=== PATIENT | female | born 1965 | race Caucasian/White ===

== ENCOUNTER → 2017-02-19 | Outpatient (CLI) | payer BC ==
[2017-02-19 13:59] LABS: Anion Gap 9 mmol/L; Blood Urea Nitrogen 14 mg/dL (7-17); Calcium 9.4 mg/dL (8.4-10.2); Carbon Dioxide 28 mmol/L (22-30); Chloride 104 mmol/L (98-107); Glucose 89 mg/dL (74-99); Non-African American GFR(MDRD) >60 (>60 ml/min/1.73 sqM); Potassium 4.4 mmol/L (3.5-5.1); Sodium 141 mmol/L (137-145)
== END | disposition home or self-care (01) ==
LOC: LABWHC1 12:15
PROVIDERS: ATTEND Family Medicine
DX: I10 Essential (primary) hypertension (principal)
CPT/HCPCS: 36415; 80048

== ENCOUNTER → 2017-05-06 | Outpatient (CLI) | payer BC ==
[2017-05-06 16:56] LABS: ALT 31 U/L (9-52); AST 20 U/L (14-36)
== END | disposition home or self-care (01) ==
LOC: LABWHC1 16:04
PROVIDERS: ATTEND Dermatology
DX: B35.1 Tinea unguium (principal)
CPT/HCPCS: 36415; 84450; 84460

== ENCOUNTER 2019-08-23 07:44 | Emergency (ER) | payer BC ==
[2019-08-23 07:49] VITALS: TEMP 98
[2019-08-23] MEDS ORDERED: ASPIRIN 81 MG PO STA (07:58)
--- NOTE | 2019-08-23 08:04 | ED ---
Chest Pain HPI - General Chief Complaint: Chest Pain Stated Complaint: chest pain Time Seen by Provider: 08/23/19 07:51 Source: patient, RN notes reviewed Mode of arrival: wheelchair Limitations: no limitations - History of Present Illness Initial Comments: This a 54-year-old female presents emergency Department chief complaint of chest pain and shortness of breath. Patient states symptoms started yesterday morning. Patient states she felt like she was kicked in her back. Patient states that she felt like she just slept wrong. Patient states she woke up this morning and saw the symptoms in which she had some pain rating down her right arm, right side region. She states it hurts to take a deep inspiration. She states this makes her feel short of breath. 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 Patient states this is an 2013. Patient denies history of cardiac disease, lung disease. Patient has no history of diabetes, hyperlipidemia. Patient has no recent fever, chills, cough congestion. - Related Data Home Medications Medication Instructions Recorded Confirmed HYDROcodone/APAP 7.5-325MG [[place] 1 tab PO TID PRN 09/09/15 08/23/19 7.5-325] ALPRAZolam [Xanax] 0.25 mg PO Q6H PRN 08/23/19 08/23/19 Cholecalciferol (Vitamin D3) 2,000 unit PO DAILY 08/23/19 08/23/19 [Vitamin D3] Lisinopril-Hctz 10-12.5 mg 1 tab PO DAILY 08/23/19 08/23/19 [Zestoretic 10-12.5] Magnesium Chloride [Slow Mag] 64 mg PO DAILY 08/23/19 08/23/19 Melatonin 5 mg PO HS PRN 08/23/19 08/23/19 Mv-Min/Vit C/Glut/Lysine/Hc124 1 tab PO DAILY PRN 08/23/19 08/23/19 [Airborne Tablet Chewable] Phentermine HCl [Adipex-P] 37.5 mg PO DAILY 08/23/19 08/23/19 Sertraline [Zoloft] 100 mg PO DAILY 08/23/19 08/23/19 Previous Rx's Medication Instructions Recorded Ibuprofen [Motrin] 600 mg PO Q8HR PRN #30 tab 08/23/19 Allergies Allergy/AdvReac Type Severity Reaction Status Date / Time erythromycin base Allergy Nausea & Verified 08/23/19 08:38 Vomiting Review of Systems ROS Statement: Those systems with pertinent positive or pertinent negative responses have been documented in the HPI. ROS Other: All systems not noted in ROS Statement are negative. EKG Findings - EKG Comments: EKG Findings:: EKG 8:02 sinus tachycardia with rate of 105 DE 128 QRS 84 QT /QTC 336/444 - EKG Results: EKG: interpreted by [facility]ALO Past Medical History Past Medical History: Cancer Additional Past Medical History / Comment(s): SQAUMOUS CELL /TONGUE History of Any Multi-Drug Resistant Organisms: None Reported Past Surgical History: Cholecystectomy, Hysterectomy Additional Past Surgical History / Comment(s): LEFT OOPERECTOMY. TONGUE TUMOR RESECTED WITH FREE FLAP GRAFT/ARTERY WITH NECK LYMPH NODE DISSECTION/RADIATION. Past Anesthesia/Blood Transfusion Reactions: Motion Sickness Past Psychological History: Depression Smoking Status: Former smoker Past Alcohol Use History: None Reported Past Drug Use History: None Reported General Exam Limitations: no limitations General appearance: alert, in no apparent distress Head exam: Present: atraumatic, normocephalic, normal inspection Eye exam: Present: normal appearance, PERRL, EOMI. Absent: scleral icterus, conjunctival injection, periorbital swelling ENT exam: Present: normal exam, normal oropharynx, mucous membranes moist, TM's normal bilaterally, normal external ear exam Neck exam: Present: full ROM. Absent: normal inspection (Old scarring and deformity noted in the lisinopril neck), tenderness, meningismus, lymphadenopathy Respiratory exam: Present: normal lung sounds bilaterally, chest wall tenderness. Absent: respiratory distress, wheezes, rales, rhonchi, stridor Cardiovascular Exam: Present: normal rhythm, tachycardia, normal heart sounds. Absent: systolic murmur, diastolic murmur, rubs, gallop, clicks GI/Abdominal exam: Present: soft, normal bowel sounds. Absent: distended, tenderness, guarding, rebound, rigid Back exam: Absent: CVA tenderness (R), CVA tenderness (L) Neurological exam: Present: alert, oriented X3 Skin exam: Present: warm, dry, intact, normal color. Absent: rash Course Vital Signs 08/23/19 08/23/19 08/23/19 07:47 08:05 08:06 Temperature 98.0 F Pulse Rate 117 H 96 Pulse Rate [ 92 Interactive Designer ] Respiratory 18 96 H Rate Blood Pressure 144/89 O2 Sat by Pulse 98 95 Oximetry 08/23/19 08/23/19 08/23/19 08:11 09:00 10:00 Temperature Pulse Rate 95 101 H 91 Pulse Rate [ Interactive Designer ] Respiratory 16 16 20 Rate Blood Pressure 135/92 131/95 157/96 O2 Sat by Pulse 98 96 95 Oximetry 08/23/19 11:00 Temperature Pulse Rate 95 Pulse Rate [ Interactive Designer ] Respiratory 21 Rate Blood Pressure 139/99 O2 Sat by Pulse 95 Oximetry Chest Pain MDM - MDM Patient has reproducible chest pain with a negative workup including negative troponin 2, remaining laboratory unremarkable chest x-ray unremarkable. Do feel this is related to chest wall pain as it is reproducible worse with movement. Patient has a negative d-dimer. We discussed admission patient declines. Patient will be discharged with close follow-up return parameters were discussed. Disposition Clinical Impression: Atypical chest pain, Chest wall pain Disposition: HOME SELF-CARE Condition: Stable Instructions (If sedation given, give patient instructions): Costochondritis (ED), Chest Pain (ED) Additional Instructions: Please return to the Emergency Department if symptoms worsen or any other concerns. Prescriptions: Ibuprofen [Motrin] 600 mg PO Q8HR PRN #30 tab PRN Reason: Pain Is patient prescribed a controlled substance at d/c from ED?: No Referrals: Phong Gonzalez MD [Primary Care Provider] - 1-2 days Time of Disposition: 11:43
[2019-08-23 08:19] LABS: Basophils # (A) 0.1 k/uL (0-0.2); Basophils % (A) 1 %; Eosinophils # (A) 0.2 k/uL (0-0.7); Eosinophils % (A) 2 %; HCT 44.9 % (34.0-46.0); HGB 15.1 gm/dL (11.4-16.0); Lymphocytes # (A) 1.3 k/uL (1.0-4.8); Lymphocytes % (A) 17 %; MCH 29.3 pg (25.0-35.0); MCHC 33.7 g/dL (31.0-37.0); MCV 86.8 fL (80.0-100.0); Mean Platelet Volume 6.7; Monocytes # (A) 0.5 k/uL (0-1.0); Monocytes % (A) 6 %; Neutrophils # (A) 5.7 k/uL (1.3-7.7); Neutrophils % (A) 73 %; Platelet Count 335 k/uL (150-450); RBC 5.17 m/uL (3.80-5.40); RDW 12.5 % (11.5-15.5); WBC 7.7 k/uL (3.8-10.6)
--- NOTE | 2019-08-23 08:28 | XR ---
EXAMINATION TYPE: XR chest 2V DATE OF EXAM: 08/23/2019 COMPARISON: NONE HISTORY: Chest pain today. History of throat/neck cancer. TECHNIQUE: Frontal and lateral views of the chest are obtained. FINDINGS: Overlying EKG leads. There is no focal air space opacity, pleural effusion, or pneumothora x seen. The cardiac silhouette size is within normal limits. The osseous structures are intact. Le ft axillary surgical clips. IMPRESSION: No acute cardiopulmonary process.
[2019-08-23 08:31] LABS: Albumin 4.8 g/dL (3.5-5.0); Calcium 9.9 mg/dL (8.4-10.2); Magnesium 1.8 mg/dL (1.6-2.3); Potassium 4.2 mmol/L (3.5-5.1); Total Bilirubin 0.7 mg/dL (0.2-1.3)
[2019-08-23 08:42] LABS: D-Dimer 0.2 mg/L FEU (<0.60); INR 0.9 (<1.2); Partial Thromboplastin Time 26.2 sec (22.0-30.0); Prothrombin Time 10.1 sec (9.0-12.0)
[2019-08-23 11:14] VITALS: BP 139/99; PULSE 95; RESP 21
== END 2019-08-23 11:51 | disposition home or self-care (01) ==
LOC: EC 07:44
DX: R07.89 Other chest pain (principal); R06.02 Shortness of breath; F32.9 Major depressive disorder, single episode, unspecified; Z79.899 Other long term (current) drug therapy; Z88.1 Allergy status to other antibiotic agents; Z87.891 Personal history of nicotine dependence
CPT/HCPCS: 36415; 71046; 80053; 83690; 83735; 83880; 84484; 85025; 85379; 85610; 85730; 93005; 99285

== ENCOUNTER 2023-03-08 14:17 | Emergency (ER) | payer BC ==
[2023-03-08 14:41] VITALS: RESP 20
--- NOTE | 2023-03-08 15:46 | CT ---
EXAMINATION TYPE: CT brain kiki higuera DATE OF EXAM: 03/08/2023 COMPARISON: None HISTORY: headache and neck pain following fall CT DLP: [address] of the brain was performed. The ventricles, basal cisterns and sulci overlying the cerebral convexities demonstrate mild enlargem ent. There is no evidence for intracranial hemorrhage or sulcal effacement. There is decreased attenuatio n about the periventricular white matter and deep white matter of both cerebral hemispheres, compatib le with chronic small vessel ischemia. No mass effects are seen. If symptoms persist consider MRI. Osseous calvarium is intact. IMPRESSION: 1. Age related atrophic and chronic small vessel ischemic change without acute intracranial process seen at this time. CT Cervical Spine: Unenhanced CT of the cervical spine was performed with bone and soft tissue window settings submitted . Coronal and sagittal reconstruction is obtained. There is normal alignment and prevertebral soft tissues. No evidence for acute cervical fracture. Sca ttered degenerative disc disease and spondylosis. Biapical scarring. Postoperative neck dissection changes seen. IMPRESSION: 1. No evidence for acute fracture or subluxation of the cervical spine.
[2023-03-08] MEDS ORDERED: CYCLOBENZAPRINE 5 MG TAB PO STA (15:47)
[2023-03-08] MEDS ORDERED: LIDOCAINE 5% PATCH TOPICAL STA (15:48)
[2023-03-08] MEDS: ACETAMINOPHEN TAB 500 MG TAB PO STA ×2 (15:52→16:00)
--- NOTE | 2023-03-08 16:36 | ED ---
Fall HPI - General Chief Complaint: Fall Stated Complaint: fall - head injury Time Seen by Provider: 03/08/23 15:01 Source: patient Mode of arrival: ambulatory - History of Present Illness Initial Comments: Patient is a 57-year-old female who presents to the emergency department for headache. Patient fell yesterday hitting her head on brick. She did not lose consciousness. She is not on blood thinners. Patient has significant headache in the back of her head and neck. She denies blurry vision, double vision, nausea, vomiting. Patient does feel lightheaded. - Related Data Home Medications Medication Instructions Recorded Confirmed HYDROcodone/APAP 7.5-325MG [[place] 1 tab PO TID PRN 09/09/15 08/23/19 7.5-325] ALPRAZolam [Xanax] 0.25 mg PO Q6H PRN 08/23/19 08/23/19 Cholecalciferol (Vitamin D3) 2,000 unit PO DAILY 08/23/19 08/23/19 [Vitamin D3] Lisinopril-Hctz 10-12.5 mg 1 tab PO DAILY 08/23/19 08/23/19 [Zestoretic 10-12.5] Magnesium Chloride [Slow Mag] 64 mg PO DAILY 08/23/19 08/23/19 Melatonin 5 mg PO HS PRN 08/23/19 08/23/19 Mv-Min/Vit C/Glut/Lysine/Hc124 1 tab PO DAILY PRN 08/23/19 08/23/19 [Airborne Tablet Chewable] Phentermine HCl [Adipex-P] 37.5 mg PO DAILY 08/23/19 08/23/19 Sertraline [Zoloft] 100 mg PO DAILY 08/23/19 08/23/19 Previous Rx's Medication Instructions Recorded Ibuprofen [Motrin] 600 mg PO Q8HR PRN #30 tab 08/23/19 Acetaminophen Tab [Tylenol Tab] 1,000 mg PO Q6H PRN #30 tablet 03/08/23 Cyclobenzaprine [Flexeril] 5 mg PO TID PRN #15 tablet 03/08/23 Lidocaine 5% Patch [Lidoderm 5% 1 patch TOPICAL DAILY PRN #7 patch 03/08/23 Patch] Allergies Allergy/AdvReac Type Severity Reaction Status Date / Time erythromycin base Allergy Nausea & Verified 03/08/23 14:41 Vomiting Review of Systems ROS Statement: Those systems with pertinent positive or pertinent negative responses have been documented in the HPI. ROS Other: All systems not noted in ROS Statement are negative. Past Medical History Past Medical History: Cancer Additional Past Medical History / Comment(s): SQAUMOUS CELL /TONGUE History of Any Multi-Drug Resistant Organisms: None Reported Past Surgical History: Cholecystectomy, Hysterectomy Additional Past Surgical History / Comment(s): LEFT OOPERECTOMY. TONGUE TUMOR RESECTED WITH FREE FLAP GRAFT/ARTERY WITH NECK LYMPH NODE DISSECTION/RADIATION. Past Anesthesia/Blood Transfusion Reactions: Motion Sickness Past Psychological History: Depression Smoking Status: Never smoker Past Alcohol Use History: None Reported Past Drug Use History: None Reported General Exam Limitations: no limitations General appearance: alert, in no apparent distress Head exam: Present: atraumatic, normocephalic, normal inspection Eye exam: Present: normal appearance, PERRL, EOMI. Absent: scleral icterus, conjunctival injection, periorbital swelling ENT exam: Present: TM's normal bilaterally Neck exam: Present: normal inspection, tenderness (midline ), full ROM. Absent: meningismus, lymphadenopathy Respiratory exam: Present: normal lung sounds bilaterally. Absent: respiratory distress, wheezes, rales, rhonchi, stridor Cardiovascular Exam: Present: regular rate, normal rhythm, normal heart sounds. Absent: systolic murmur, diastolic murmur, rubs, gallop, clicks Neurological exam: Present: alert, oriented X3, CN II-XII intact Expanded Cerebellar function: Finger to Nose: Normal, Heel to Tai: Normal Sensory exam: Upper Extremity Light Touch: Normal, Lower Extremity Light Touch: Normal Motor strength exam: RUE: 5, LUE: 5, RLE: 5, LLE: 5 Psychiatric exam: Present: normal affect, normal mood Skin exam: Present: warm, dry, intact, normal color. Absent: rash Course Vital Signs 03/08/23 03/08/23 14:38 17:19 Temperature 98.5 F 98.1 F Pulse Rate 98 82 Respiratory 20 20 Rate Blood Pressure 145/91 136/86 O2 Sat by Pulse 99 99 Oximetry Medical Decision Making - Medical Decision Making Was pt. sent in by a medical professional or institution (, PA, WEB CONTENT EDITOR, urgent care, hospital, or senior care...) When possible be specific @ -No Did you speak to anyone other than the patient for history (EMS, parent, family, police, friend...)? What history was obtained from this source @ -No Did you review nursing and triage notes (agree or disagree)? Why? @ -I reviewed and agree with nursing and triage notes Were old charts reviewed (outside hosp., previous admission, EMS record, old EKG, old radiological studies, urgent care reports/EKG's, senior care records)? Report findings @ -No old charts were reviewed Differential Diagnosis (chest pain, altered mental status, abdominal pain women, abdominal pain men, vaginal bleeding, weakness, fever, dyspnea, syncope, headache, dizziness, GI bleed, back pain, seizure, CVA, palpatations, mental health)? @ -Differential Headache: Migraine, tension, cluster, carbon monoxide, central venous thrombosis, pension karma temporal arteritis, acute closure glaucoma, intercranial hemorrhage, mastoiditis, sinusitis, head injury, this is not meant to be an all-inclusive list. EKG interpreted by me (3pts min.). @ -As above X-rays interpreted by me (1pt min.). @ -None done CT interpreted by me (1pt min.). @ -Negative for acute intracranial process and cervical spine fracture U/S interpreted by me (1pt. min.). @ -None done What testing was considered but not performed or refused? (CT, X-rays, U/S, labs)? Why? @ -None What meds were considered but not given or refused? Why? @ -None Did you discuss the management of the patient with other professionals (professionals i.e. , PA, WEB CONTENT EDITOR, lab, RT, psych nurse, director of social services, icing coater, teacher, fire officer, ed case manager)? Give summary @ -No Was smoking cessation discussed for >3mins.? @ -No Was critical care preformed (if so, how long)? @ -No Were there social determinants of health that impacted care today? How? (Homelessness, low income, unemployed, alcoholism, drug addiction, transportation, low edu. Level, literacy, decrease access to med. care, [facility], rehab)? @ -No Was there de-escalation of care discussed even if they declined (Discuss DNR or withdrawal of care, Hospice)? DNR status @ -No What co-morbidities impacted this encounter? (DM, HTN, Smoking, COPD, CAD, Cancer, CVA, ARF, Chemo, Hep., AIDS, mental health diagnosis, sleep apnea, morbid obesity)? @ -None Was patient admitted / discharged? Hospital course, mention meds given and route, prescriptions, significant lab abnormalities, going to OR and other pertinent info. @ -Patient presenting for closed head injury. No loss of consciousness, no blood thinner use, no vomiting, no hematoma. Patient has significant headache and midline neck pain. She is concerned that she may have a brain bleed. Given severity of headache CT of the brain and C-spine was obtained and interpreted by myself/radiology showing no acute intracranial process and no evidence of cervical spine fracture. Pain treated in the emergency department with improvement. Patient stable medical condition for discharge with discuss concu ssion in detail. Undiagnosed new problem with uncertain prognosis? @ -No Drug Therapy requiring intensive monitoring for toxicity (Heparin, Nitro, Insulin, Cardizem)? @ -No Were any procedures done? @ -No Diagnosis/symptom? @ -fall,closed head injury, headache, neck pain Acute, or Chronic, or Acute on Chronic? @ -acute Uncomplicated (without systemic symptoms) or Complicated (systemic symptoms)? @ -uncomplicated Side effects of treatment? @ -No Exacerbation, Progression, or Severe Exacerbation? @ -No Poses a threat to life or bodily function? How? (Chest pain, [place], [place], pneumonia, PE, COPD, DKA, ARF, appy, cholecystitis, CVA, Diverticulitis, Homicidal, Suicidal, threat to staff... and all critical care pts) @ -No Dr. Watters is my attending Disposition Clinical Impression: Fall, Closed head injury, Headache, Neck pain Disposition: HOME SELF-CARE Condition: Good Instructions (If sedation given, give patient instructions): Concussion (ED), Fall Prevention for Older Adults (ED) Additional Instructions: Take medication as directed. Avoid anti-inflammatory medications such as Motrin and to 48 hours post-head injury. Please follow-up with your primary care provider in 1-2 days. Return to the emergency department if you experience new, concerning, or worsening symptoms. Prescriptions: Cyclobenzaprine [Flexeril] 5 mg PO TID PRN #15 tablet PRN Reason: Muscle Spasm Lidocaine 5% Patch [Lidoderm 5% Patch] 1 patch TOPICAL DAILY PRN #7 patch PRN Reason: Pain Acetaminophen Tab [Tylenol Tab] 1,000 mg PO Q6H PRN #30 tablet PRN Reason: Pain Is patient prescribed a controlled substance at d/c from ED?: No Referrals: Phong Gonzalez MD [Primary Care Provider] - 1-2 days
[2023-03-08 17:21] VITALS: BP 136/86; PULSE 82; TEMP 98.1
== END 2023-03-08 17:28 | disposition home or self-care (01) ==
LOC: EC 14:17
DX: S09.90XA Unspecified injury of head, initial encounter (principal); M54.2 Cervicalgia; Z88.8 Allergy status to other drugs, medicaments and biological substances; Z86.59 Personal history of other mental and behavioral disorders; W18.09XA Striking against other object with subsequent fall, initial encounter
CPT/HCPCS: 70450; 72125; 99284

== ENCOUNTER 2024-05-27 08:17 | Emergency (ER) | payer BC ==
[2024-05-27 08:22] VITALS: TEMP 98
--- NOTE | 2024-05-27 08:42 | ED ---
GI Bleed HPI - General Chief complaint: GI Bleed Stated complaint: GI Bleed Time Seen by Provider: 05/27/24 08:38 Source: patient, RN notes reviewed Mode of arrival: ambulatory Limitations: no limitations - History of Present Illness Initial comments: 59-year-old female presented to the ER with a chief complaint of bright red blood per rectum. Patient reports for the past 5 days she has been having an increase in back pain. Patient was seen by urgent care yesterday and had x-rays completed. Patient was found to have constipation and impaction. Patient was discharged with Fleet enemas to complete at home. Patient also discharged with steroids and muscle relaxers for back pain, has not started medications at this time. Patient does report a history of constipation and typically takes Colace with relief. She states she completed the 2 Fleet enemas at home and this morning while using the restroom she noticed bright red blood in the toilet bowl and when wiping. No blood thinner use, history of hemorrhoids or anal fissures. Patient is reporting a mild generalized abdominal pain and rectal pain. Any fevers, chills, nausea, vomiting. Denies any other complaints at this time. - Related Data Home Medications Medication Instructions Recorded Confirmed ALPRAZolam [Xanax] 0.25 mg PO Q6H PRN 08/23/19 05/27/24 Lisinopril-Hctz 10-12.5 mg 1 tab PO DAILY 08/23/19 05/27/24 [Zestoretic 10-12.5] Phentermine HCl [Adipex-P] 37.5 mg PO DAILY 08/23/19 05/27/24 Sertraline [Zoloft] 50 mg PO DAILY 08/23/19 05/27/24 Gabapentin [Neurontin] 100 mg PO TID 05/27/24 05/27/24 Ibuprofen/Acetaminophen [Advil 1 tab PO DAILY PRN 05/27/24 05/27/24 Dual Action 125MG(IBU)-250MG(ACET)] Previous Rx's Medication Instructions Recorded Amoxic-Pot Clav 875-125Mg 1 tab PO Q12HR #14 tab 05/27/24 [Augmentin 875-125] Allergies Allergy/AdvReac Type Severity Reaction Status Date / Time erythromycin base AdvReac Nausea & Verified 08/31/24 10:21 Vomiting Review of Systems ROS Statement: Those systems with pertinent positive or pertinent negative responses have been documented in the HPI. ROS Other: All systems not noted in ROS Statement are negative. Past Medical History Past Medical History: Cancer Additional Past Medical History / Comment(s): SQAUMOUS CELL /TONGUE History of Any Multi-Drug Resistant Organisms: None Reported Past Surgical History: Cholecystectomy, Hysterectomy Additional Past Surgical History / Comment(s): LEFT OOPERECTOMY. TONGUE TUMOR RESECTED WITH FREE FLAP GRAFT/ARTERY WITH NECK LYMPH NODE DISSECTION/RADIATION. Past Anesthesia/Blood Transfusion Reactions: Motion Sickness Past Psychological History: Depression Smoking Status: Never smoker Past Alcohol Use History: None Reported Past Drug Use History: None Reported General Exam Limitations: no limitations General appearance: alert, in no apparent distress Respiratory exam: Present: normal lung sounds bilaterally. Absent: respiratory distress, wheezes, rales, rhonchi, stridor Cardiovascular Exam: Present: regular rate, normal rhythm, normal heart sounds. Absent: systolic murmur, diastolic murmur, rubs, gallop, clicks GI/Abdominal exam: Present: soft, tenderness (Generalized), normal bowel sounds Rectal exam: Present: normal inspection, normal rectal tone, heme (+) stool (blood tinged), other Extremities exam: Present: normal inspection, full ROM, normal capillary refill. Absent: tenderness, pedal edema, joint swelling, calf tenderness Neurological exam: Present: alert, oriented X3, CN II-XII intact Skin exam: Present: warm, dry, intact, normal color. Absent: rash Course Vital Signs 05/27/24 05/27/24 05/27/24 08:18 11:00 13:15 Temperature 98 F Pulse Rate 102 H 93 93 Respiratory 18 16 16 Rate Blood Pressure 127/84 122/79 113/72 O2 Sat by Pulse 99 Oximetry 05/27/24 14:13 Temperature Pulse Rate 91 Respiratory 16 Rate Blood Pressure 132/79 O2 Sat by Pulse 98 Oximetry - Reevaluation(s) Reevaluation #1: 05/27/24 08:43 Rectal exam completed and chaperoned by Tiana URBANO. Medical Decision Making - Medical Decision Making Was pt. sent in by a medical professional or institution (, PA, SHUTTLE PREPARATION SUPERVISOR, urgent care, hospital, or skilled nursing...) When possible be specific @ -No Did you speak to anyone other than the patient for history (EMS, parent, family, police, friend...)? What history was obtained from this source @ -No Did you review nursing and triage notes (agree or disagree)? Why? @ -I reviewed and agree with nursing and triage notes Were old charts reviewed (outside hosp., previous admission, EMS record, old EKG, old radiological studies, urgent care reports/EKG's, skilled nursing records)? Report findings @ -No old charts were reviewed Differential Diagnosis (chest pain, altered mental status, abdominal pain women, abdominal pain men, vaginal bleeding, weakness, fever, dyspnea, syncope, headache, dizziness, GI bleed, back pain, seizure, CVA, palpatations, mental health, musculoskeletal)? @ -Differential GI Bleed:Esophageal varices, aortoenteric fistula, Angie- Holland, gastritis, peptic ulcer disease, diverticulosis, inflammatory bowel disea se, hemorrhoids, fissure, colitis, malignancy, Meckel's diverticulum, this is not meant to be an all-inclusive list. EKG interpreted by me (3pts min.). @ -None X-rays interpreted by me (1pt min.). @ -KUB interpreted by me showing a moderate stool burden in colon. Nonspecific gas bowel pattern. CT interpreted by me (1pt min.). @ -CT abdomen pelvis showing mild wall thickening in distal sigmoid colon correlate with colitis. Moderate fecal retention. U/S interpreted by me (1pt. min.). @ -None done What testing was considered but not performed or refused? (CT, X-rays, U/S, labs)? Why? @ -None What meds were considered but not given or refused? Why? @ -None Did you discuss the management of the patient with other professionals (professionals i.e. , PA, SHUTTLE PREPARATION SUPERVISOR, lab, RT, psych nurse, social services designee, drafter refrigeration, teacher, lodge officer, shoe parts caser)? Give summary @ -No Was smoking cessation discussed for >3mins.? @ -No Was critical care preformed (if so, how long)? @ -No Were there social determinants of health that impacted care today? How? (Homelessness, low income, unemployed, alcoholism, drug addiction, transportation, low edu. Level, literacy, decrease access to med. care, [facility], rehab)? @ -No Was there de-escalation of care discussed even if they declined (Discuss DNR or withdrawal of care, Hospice)? DNR status @ -No What co-morbidities impacted this encounter? (DM, HTN, Smoking, COPD, CAD, Cancer, CVA, ARF, Chemo, Hep., AIDS, mental health diagnosis, sleep apnea, morbid obesity)? @ -None Was patient admitted / discharged? Hospital course, mention meds given and route , prescriptions, significant lab abnormalities, going to OR and other pertinent info. @ -Discharge. 59-year-old female presented to the ER with a chief complaint of rectal bleeding. History and physical exam completed. Vitals stable. Patient in no signs of acute distress and nontoxic-appearing. Mild abdominal tenderness to left side. No rebound or guarding. Normal bowel sounds. Rectal exam performed showing normal rectal tone with no hemorrhoids or anal fissures present. There was a blood-tinged stool liquid obtained on exam. Exam chaperoned by Tiana URBANO. Laboratory studies obtained showing a stable hemoglobin at 14.6. Coagulation studies normal. Chemistry panel within normal limits. KUB initially performed showing moderate fecal retention consistent with constipation. No suspicious air-fluid levels. Enema performed, pt passed small amount of stool. CTA abdomen pelvis performed at that time showing evidence of colitis. Patient will be started on Augmentin. Upon reevaluation, patient resting comfortably in exam room no signs of acute distress. Results discussed with patient, all questions answered. I advised close follow-up with PCP. Strict return parameters discussed. Patient discharged in stable condition. Patient verbally expressed understanding agree with care plan. Case discussed with ED attending, Dr. Chaparro. Undiagnosed new problem with uncertain prognosis? @ -No Drug Therapy requiring intensive monitoring for toxicity (Heparin, Nitro, Insulin, Cardizem)? @ -No Were any procedures done? @ -No Diagnosis/symptom? @ -Colitis/constipation Acute, or Chronic, or Acute on Chronic? @ -Acute Uncomplicated (without systemic symptoms) or Complicated (systemic symptoms)? @ -Uncomplicated Side effects of treatment? @ -No Exacerbation, Progression, or Severe Exacerbation? @ -No Poses a threat to life or bodily function? How? (Chest pain, [place], [place], pneumonia, PE, COPD, DKA, ARF, appy, cholecystitis, CVA, Diverticulitis, Homicidal, Suicidal, threat to staff... and all critical care pts) @ -No - Lab Data Result diagrams: 05/27/24 08:51 05/27/24 08:51 Lab Results 05/27/24 05/27/24 05/27/24 Range/Units 08:51 08:51 08:51 WBC 10.6 (3.8-10.6) k/uL RBC 5.07 (3.80-5.40) m/uL Hgb 14.6 (11.4-16.0) gm/dL Hct 44.1 (34.0-46.0) % MCV 86.9 (80.0-100.0) fL MCH 28.8 (25.0-35.0) pg MCHC 33.2 (31.0-37.0) g/dL RDW 12.7 (11.5-15.5) % Plt Count 277 (150-450) k/uL MPV 7.4 Neutrophils % 77 % Lymphocytes % 15 % Monocytes % 5 % Eosinophils % 2 % Basophils % 0 % Neutrophils # 8.1 H (1.3-7.7) k/uL Lymphocytes # 1.5 (1.0-4.8) k/uL Monocytes # 0.5 (0-1.0) k/uL Eosinophils # 0.2 (0-0.7) k/uL Basophils # 0.1 (0-0.2) k/uL PT 10.4 (10.0-12.5) sec INR 0.9 (<1.2) APTT 24.6 (22.0-30.0) sec Sodium 138 (137-145) mmol/L Potassium 3.8 (3.5-5.1) mmol/L Chloride 105 (98-107) mmol/L Carbon Dioxide 25 (22-30) mmol/L Anion Gap 8 mmol/L BUN 22 H (7-17) mg/dL Creatinine 0.85 (0.52-1.04) mg/dL Est GFR (CKD-EPI)AfAm 86 (>60 ml/min/1.73 sqM) Est GFR (CKD-EPI)NonAf 75 (>60 ml/min/1.73 sqM) Glucose 97 (74-99) mg/dL Plasma Lactic Acid Dennys (0.7-2.0) mmol/L Calcium 9.5 (8.4-10.2) mg/dL Total Bilirubin 0.9 (0.2-1.3) mg/dL AST 22 (14-36) U/L ALT 17 (4-34) U/L Alkaline Phosphatase 66 (38-126) U/L Total Protein 7.0 (6.3-8.2) g/dL Albumin 4.2 (3.5-5.0) g/dL 05/27/24 Range/Units 08:51 WBC (3.8-10.6) k/uL RBC (3.80-5.40) m/uL Hgb (11.4-16.0) gm/dL Hct (34.0-46.0) % MCV (80.0-100.0) fL MCH (25.0-35.0) pg MCHC (31.0-37.0) g/dL RDW (11.5-15.5) % Plt Count (150-450) k/uL MPV Neutrophils % % Lymphocytes % % Monocytes % % Eosinophils % % Basophils % % Neutrophils # (1.3-7.7) k/uL Lymphocytes # (1.0-4.8) k/uL Monocytes # (0-1.0) k/uL Eosinophils # (0-0.7) k/uL Basophils # (0-0.2) k/uL PT (10.0-12.5) sec INR (<1.2) APTT (22.0-30.0) sec Sodium (137-145) mmol/L Potassium (3.5-5.1) mmol/L Chloride (98-107) mmol/L Carbon Dioxide (22-30) mmol/L Anion Gap mmol/L BUN (7-17) mg/dL Creatinine (0.52-1.04) mg/dL Est GFR (CKD-EPI)AfAm (>60 ml/min/1.73 sqM) Est GFR (CKD-EPI)NonAf (>60 ml/min/1.73 sqM) Glucose (74-99) mg/dL Plasma Lactic Acid Dennys 1.1 (0.7-2.0) mmol/L Calcium (8.4-10.2) mg/dL Total Bilirubin (0.2-1.3) mg/dL AST (14-36) U/L ALT (4-34) U/L Alkaline Phosphatase (38-126) U/L Total Protein (6.3-8.2) g/dL Albumin (3.5-5.0) g/dL - Radiology Data Radiology results: report reviewed, image reviewed Disposition Clinical Impression: Colitis, Constipation Disposition: HOME SELF-CARE Condition: Stable Instructions (If sedation given, give patient instructions): Constipation (ED), Colitis (ED) Additional Instructions: Please complete full course of antibiotics. Follow-up with PCP. Return to the ER for new or worsening concerns including but not limited to black tarry stool, increase in bright red blood in toilet or increase in pain. Prescriptions: Amoxic-Pot Clav 875-125Mg [Augmentin 875-125] 1 tab PO Q12HR #14 tab Is patient prescribed a controlled substance at d/c from ED?: No Referrals: Phong Gonzalez MD [Primary Care Provider] - 1-2 days Trayn Bedolla MD [STAFF PHYSICIAN] - 1-2 days Time of Disposition: 13:55
[2024-05-27 09:01] LABS: Basophils # (A) 0.1 k/uL (0-0.2); Basophils % (A) 0 %; Eosinophils # (A) 0.2 k/uL (0-0.7); Eosinophils % (A) 2 %; HCT 44.1 % (34.0-46.0); HGB 14.6 gm/dL (11.4-16.0); Lymphocytes # (A) 1.5 k/uL (1.0-4.8); Lymphocytes % (A) 15 %; MCH 28.8 pg (25.0-35.0); MCHC 33.2 g/dL (31.0-37.0); MCV 86.9 fL (80.0-100.0); Mean Platelet Volume 7.4; Monocytes # (A) 0.5 k/uL (0-1.0); Monocytes % (A) 5 %; Neutrophils # (A) 8.1 k/uL (1.3-7.7); Neutrophils % (A) 77 %; Platelet Count 277 k/uL (150-450); RBC 5.07 m/uL (3.80-5.40); RDW 12.7 % (11.5-15.5); WBC 10.6 k/uL (3.8-10.6)
[2024-05-27 09:10] LABS: INR 0.9 (<1.2); Partial Thromboplastin Time 24.6 sec (22.0-30.0); Prothrombin Time 10.4 sec (10.0-12.5)
[2024-05-27 09:12] LABS: ALT 17 U/L (4-34); AST 22 U/L (14-36); African American GFR (CKD) 86 (>60 ml/min/1.73 sqM); Albumin 4.2 g/dL (3.5-5.0); Alkaline Phosphatase 66 U/L (38-126); Anion Gap 8 mmol/L; Blood Urea Nitrogen 22 mg/dL (7-17); Calcium 9.5 mg/dL (8.4-10.2); Carbon Dioxide 25 mmol/L (22-30); Chloride 105 mmol/L (98-107); Glucose 97 mg/dL (74-99); Non-African American GFR(CKD) 75 (>60 ml/min/1.73 sqM); Potassium 3.8 mmol/L (3.5-5.1); Sodium 138 mmol/L (137-145); Total Bilirubin 0.9 mg/dL (0.2-1.3)
[2024-05-27] MEDS: SODIUM CHLORIDE 0.9% 1,000 ML IV STA (09:22)
--- NOTE | 2024-05-27 10:48 | XR ---
EXAMINATION TYPE: XR KUB DATE OF EXAM: 05/27/2024 COMPARISON: None INDICATION: Constipation, GI bleed TECHNIQUE: Single view abdomen frontal upright view FINDINGS: There is a normal bowel gas pattern. Abundant fecal debris is throughout the colon. Correlate for fec al retention and constipation. No suspicious air-fluid levels or differential air-fluid levels eviden t. No mass effect is evident. Psoas margins are normal. No organomegaly is present. Cholecystectomy clips are in the right upper quadrant. IMPRESSION: 1. Correlate for fecal retention and constipation.
[2024-05-27 11:16] VITALS: RESP 16
--- NOTE | 2024-05-27 13:32 | CT ---
EXAMINATION TYPE: CT angio abdomen pelvis DATE OF EXAM: 05/27/2024 COMPARISON: None INDICATION: RECTAL BLEEDING DLP: 947.8 mGycm, Automated exposure control for dose reduction was used. CONTRAST: 100 mL of Isovue 300. Study performed without Oral Contrast TECHNIQUE: Axial images were obtained from above the diaphragm to the pubic rami in the axial plane a t 5 mm thick sections. Reconstructed images are reviewed on the computer in the coronal plane. FINDINGS: Limited CT sections are obtained the lung bases. The lung bases are clear. CT ABDOMEN: Liver: Normal Spleen: Normal Pancreas: Normal Adrenal glands: The adrenal glands are normal. Gallbladder: Absent Kidneys: No masses are evident. No hydronephrosis is present. No cysts are present. Delayed images were obtained through the kidneys, which remain unremarkable. Aorta: Vascular calcification is within the aorta. No aneurysmal dilatation or dissection is evident . Common iliac, internal and external iliac vessels, and common femoral arteries appear normal. No harrington spicious contrast pooling is identified as a possible source for rectal bleeding. Inferior vena cava: Normal. CT PELVIS: Some mild diffuse wall thickening through the distal sigmoid colon and rectum may be present. Conside r colitis within the differential. Remaining loops of bowel within the abdomen and pelvis are normal . Fecal debris is ascending and transverse colon This study is without oral contrast limiting kristen l evaluation. Appendix: Normal as visualized. Urinary bladder: Normal. Genitourinary structures: Uterus and ovaries are not identified. Osseous structures: No suspicious lytic or sclerotic lesions. IMPRESSION: 1. Some mild wall thickening within the distal sigmoid colon and distal sigmoid junction may be pres ent. Correlate for colitis. 2. No suspicious focal area otherwise identified as a source for GI bleeding. 3. Moderate fecal retention.
[2024-05-27 14:15] VITALS: BP 132/79; PULSE 91
== END 2024-05-27 14:20 | disposition home or self-care (01) ==
LOC: EC 08:17
CPT/HCPCS: 36415; 74018; 74174; 80053; 83605; 85025; 85610; 85730; 99285